=== PATIENT | female | born 1930 | race Caucasian/White ===

== ENCOUNTER 2018-04-18 23:15 | Observation (INO) ==
[2018-04-18] MEDS ORDERED: Ondansetron 4 MG/2 ML VIAL IVP ONE (23:23)
[2018-04-18] MEDS ORDERED: Nitroglycerin 1 INCH/GM PACKET TP ONE (23:23)
[2018-04-18] MEDS ORDERED: *HR* Labetalol 100 MG/20 ML MDV IVP ONE (23:24)
--- NOTE | 2018-04-18 23:25 | Emergency Department Note ---
Disposition Clinical Impression: Chest pain Qualifiers: Chest pain type: precordial pain Qualified Code(s): R07.2 - Precordial pain HTN (hypertension) Qualifiers: Hypertension type: essential hypertension Qualified Code(s): I10 - Essential ( primary) hypertension Disposition: Admitted As Inpatient Condition: Fair Referrals: Cuba Bojorquez DO [Primary Care Provider] - Forms: ED Satisfaction Letter Chest Pain HPI - General Chief Complaint: ED Chest Pain Stated Complaint: Chest pressure, dyspnea onset 20:00 Time Seen by Provider: 04/18/18 23:16 Source: patient, EMS Mode of arrival: EMS Limitations: no limitations Vital Signs Reviewed: Yes Nursing Notes Reviewed: Yes - History of Present Illness HPI Narrative: The patient had the onset of some anterior chest pain about 8 PM. She indicates this was a heaviness as if something was laying on her chest. She has had similar before and states it was related to some heart problems such that she has had cardiac stents and bypass in the past. She states she had shortness of breath with this and nausea but no diaphoresis. The pain did not radiate to her jaw, back or arms. She became more concerned and checked her blood pressure and finding it to be elevated. EMS were subsequently called and they transported her for evaluation. They noted a blood pressure 220/88, establish an IV in the left arm and transported her without event. The patient has had 2 nitroglycerin at about 9:30 PM which she states helped quite a bit. She has taken a full strength aspirin. She denies any change in recent medications, activity or stress. She denies fevers or chills or cough. She denies any lower extremity swelling, immobilization or injury. Currently she denies shortness of breath but states her chest feels still "just a little heavy " but that it is "not bad". Patient does have history of atrial fibrillation, hypertension, elevated cholesterol and known heart disease area and she does have a family history of heart disease. She states she has never been a smoker , has no history of diabetes, DVT, PE or obesity. Pt complaint: chest pain Onset (ago): hour(s) (3) Duration: intermittent Onset: during rest Pain Location: substernal Severity: moderate Quality: tightness, heaviness Pain Radiation: none Improves with: nitroglycerin Worsens with: nothing Associated symptoms: Reports: nausea, dyspnea. Denies: vomiting, diaphoresis, syncope, palpitations, fever, cough, leg swelling Treatments prior to arrival chest pain: aspirin, nitroglycerin - Related Data Home Medications Medication Instructions Recorded Confirmed Acetaminophen/Diphenhydramine 0.5 each PO HS PRN 07/11/17 07/11/17 [Acetaminophen Pm Caplet] Aspirin 325 mg PO DAILY 07/11/17 07/11/17 Cholecalciferol (Vitamin D3) 2,000 unit PO DAILY 07/11/17 07/11/17 [Vitamin D3] Clopidogrel [Plavix] 75 mg PO DAILY 07/11/17 07/11/17 Melatonin 5 mg PO HS PRN 07/11/17 07/11/17 Metoprolol [Lopressor] 12.5 mg PO BID 07/11/17 07/11/17 Nitroglycerin 0.4 mg PO Q5M PRN 07/11/17 07/11/17 Pravastatin Sodium [Pravachol] 40 mg PO HS 07/11/17 07/11/17 Travoprost [Travatan Z] 1 drop OP HS 07/11/17 07/11/17 amLODIPine [Norvasc] 5 mg PO DAILY 07/11/17 07/11/17 hydroCHLOROthiazide 12.5 mg PO Q48H 07/11/17 07/11/17 [Hydrochlorothiazide] Previous Rx's Medication Instructions Recorded Isosorbide MONOnitrate (24 HR) 90 mg PO DAILY #30 tab.er.24h 07/12/17 [Imdur] Ranolazine [Ranexa] 500 mg PO BID #60 tab.er.12h 07/12/17 Potassium Chloride [K-Tab ER] 20 meq PO DAILY #30 tablet.er 07/13/17 Allergies Allergy/AdvReac Type Severity Reaction Status Date / Time No Known Allergies Allergy Verified 07/11/17 14:49 All systems ED: reviewed and negative except as stated. Chest Pain PMH - Past Medical History Medical history: Reports: coronary artery disease, diabetes, hyperlipidemia, hypertension, myocardial infarction. Denies: DVT, pulmonary embolus Surgical history: Reports: angioplasty/stent, coronary bypass (CABG) Psychiatric history: Reports: no psych history Prior Cardiac Testing/Procedures: Stenting, CABG - Social History Smoking Status: Never smoker Alcohol use: Reports: none Drug use: Reports: none Physical Exam - General Limitations: no limitations General appearance: alert, in no apparent distress - Head Head exam: atraumatic, normocephalic, normal inspection - Eye Eye exam: Present: normal appearance, PERRL, EOMI - ENT ENT exam: normal exam, normal oropharynx, mucous membranes moist - Neck Neck exam: Present: normal inspection, full ROM, trachea midline - Chest Chest inspection: Present: normal inspection, symmetric chest wall rise. Absent : tenderness - Respiratory Respiratory exam: Present: normal lung sounds bilaterally. Absent: respiratory distress, wheezes, prolonged expiratory phase - Cardiovascular Cardiovascular exam: Present: regular rate, normal rhythm, normal heart sounds. Absent: tachycardia, JVD - Abdominal Exam Abdominal exam: Present: soft, Non-Tender, normal bowel sounds. Absent: tenderness, distention, guarding, rebound, rigidity - Extremities Exam Extremities exam: Present: normal inspection, full ROM, normal capillary refill. Absent: tenderness, pedal edema, calf tenderness - Expanded Lower Extremity Exam Neurovascular/Tendon exam: Present: normal capillary refill. Absent: motor deficit, sensory deficit, tendon deficit Gait: not tested/not observed - Neurological Exam Neurological exam: Present: alert, oriented X3 - Psychiatric Psychiatric exam: Present: normal affect, normal mood. Absent: agitated, anxious - Skin Skin exam: Present: warm, dry, intact, normal color. Absent: cyanosis, diaphoresis, pallor Course Vital Signs Temperature 97.9 F 04/18/18 23:24 Pulse Rate 67 04/18/18 23:24 Respiratory Rate 16 04/18/18 23:24 Blood Pressure 194/89 04/18/18 23:24 O2 Sat by Pulse Oximetry 97 04/18/18 23:24 Temperature 97.9 F 04/18/18 23:24 Pulse Rate 67 04/18/18 23:24 Respiratory Rate 16 04/18/18 23:24 Blood Pressure 194/89 04/18/18 23:24 O2 Sat by Pulse Oximetry 97 04/18/18 23:24 Oxygen Delivery Oxygen Delivery Room Air Chest Pain - Differential Diagnosis Likely: unstable angina pectoris, atypical chest pain, costalchondritis, chest pain - Medical Records Medical records reviewed: Yes I reviewed the patient's medical records. - Lab Data Lab results reviewed: Yes I reviewed the patient's lab results. Result diagrams: 04/18/18 23:22 04/18/18 23:22 Lab Results 04/18/18 04/18/18 04/18/18 Range/Units 23:22 23:22 23:22 WBC 9.5 (4.3-11.1) K/mcL RBC 4.37 (3.82-4.97) M/mcL Hgb 14.6 (11.5-15.4) g/dL Hct 43.4 (35.3-44.9) % MCV 99.3 (83.0-100.0) fL MCH 33.4 H (28.0-33.3) pg MCHC 33.6 (31.6-35.5) g/dL RDW 12.4 (11.5-14.5) % Plt Count 256 (140-400) K/mcL MPV 11.4 (9.4-12.4) fL Immature Gran % 0.3 (0-4) % Seg Neutrophils % 54.6 % Lymphocytes % 35.2 % Monocytes % 7.4 % Eosinophils % 2.1 % Basophils % 0.4 % Neutrophils # 5.2 (1.6-8.9) K/mcL Lymphocytes # 3.4 (0.6-4.6) K/mcL Monocytes # 0.7 (0.0-1.3) K/mcL Eosinophils # 0.2 (0.0-0.6) K/mcL Basophils # 0.0 (0.0-0.2) K/mcL PT 11.1 (9.4-12.1) Seconds INR 1.0 APTT 30.7 (26.0-36.0) Seconds Sodium (136-145) mEq/L Potassium (3.5-5.1) mEq/L Chloride (98-107) mEq/L Carbon Dioxide (23-29) mEq/L BUN (8-23) mg/dL Creatinine (0.60-1.20) mg/dL Est GFR ( Amer) (> 60) Est GFR (Non-Af Amer) (> 60) BUN/Creatinine Ratio (6-26) Glucose (70-105) mg/dL Calculated Osmolality (280-300) Calcium (8.6-10.3) mg/dL Troponin I (< 0.04) ng/mL B-Natriuretic Peptide 66 (Less than 100) pg/mL 04/18/18 Range/Units 23:22 WBC (4.3-11.1) K/mcL RBC (3.82-4.97) M/mcL Hgb (11.5-15.4) g/dL Hct (35.3-44.9) % MCV (83.0-100.0) fL MCH (28.0-33.3) pg MCHC (31.6-35.5) g/dL RDW (11.5-14.5) % Plt Count (140-400) K/mcL MPV (9.4-12.4) fL Immature Gran % (0-4) % Seg Neutrophils % % Lymphocytes % % Monocytes % % Eosinophils % % Basophils % % Neutrophils # (1.6-8.9) K/mcL Lymphocytes # (0.6-4.6) K/mcL Monocytes # (0.0-1.3) K/mcL Eosinophils # (0.0-0.6) K/mcL Basophils # (0.0-0.2) K/mcL PT (9.4-12.1) Seconds INR APTT (26.0-36.0) Seconds Sodium 139 (136-145) mEq/L Potassium 3.5 (3.5-5.1) mEq/L Chloride 101 (98-107) mEq/L Carbon Dioxide 26 (23-29) mEq/L BUN 20 (8-23) mg/dL Creatinine 1.08 (0.60-1.20) mg/dL Est GFR ( Amer) 58 L (> 60) Est GFR (Non-Af Amer) 48 L (> 60) BUN/Creatinine Ratio 19 (6-26) Glucose 103 (70-105) mg/dL Calculated Osmolality 291 (280-300) Calcium 9.6 (8.6-10.3) mg/dL Troponin I < 0.03 (< 0.04) ng/mL B-Natriuretic Peptide (Less than 100) pg/mL - Radiology Data Radiology results reviewed: Yes I reviewed the patient's radiology results. Single view chest x-ray is performed. This does not demonstrate evidence for infiltrate, effusion, pneumothorax, foreign body or heart failure. The cardiac silhouette is normal. I do not see abnormality to the osseous structures of the chest. This is on my interpretation. Impressions Chest X-Ray 04/18/18 23:23 IMPRESSION: Stable portable study. D/ / Katie Donahue Cha, MD / Katie Donahue Cha, MD Interpreting Provider: Katie Donahue Cha, MD - EKG Data EKG attestation: Yes I reviewed and interpreted this EKG. EKG shows normal: sinus rhythm, axis, intervals, QRS complexes, ST-T waves Rate: bradycardia (59) Voltage: c/w LVH Interpretation: no acute changes, LVH Heart Score - Score History: Moderately Suspicious EKG: Non Specific repolarisation Disturbance Age: Greater than 65 Risk Factors: Equal/Greater than 3 risk factor or history of atherosclerotic disease Troponin: Less than normal limit HEART Score Total: 6
[2018-04-18 23:32] LABS: Basophils % 0.4 %; Eosinophils # 0.2 K/mcL (0.0-0.6); Eosinophils % 2.1 %; Hematocrit 43.4 % (35.3-44.9); Hemoglobin 14.6 g/dL (11.5-15.4); Immature Granulocytes % 0.3 % (0-4); Lymphocytes # 3.4 K/mcL (0.6-4.6); Lymphocytes % 35.2 %; Mean Corpuscular HGB Conc 33.6 g/dL (31.6-35.5); Mean Corpuscular Hemoglobin 33.4 pg (28.0-33.3); Mean Corpuscular Volume 99.3 fL (83.0-100.0); Mean Platelet Volume 11.4 fL (9.4-12.4); Monocytes # 0.7 K/mcL (0.0-1.3); Monocytes % 7.4 %; Neutrophils # 5.2 K/mcL (1.6-8.9); Platelet Count 256 K/mcL (140-400); Red Blood Count 4.37 M/mcL (3.82-4.97); Red Cell Distribution Width 12.4 % (11.5-14.5); Segmented Neutrophils % 54.6 %
[2018-04-18 23:40] LABS: Prothrombin Time 11.1 Seconds (9.4-12.1)
[2018-04-18 23:43] LABS: Activated Partial Thrombo Time 30.7 Seconds (26.0-36.0)
[2018-04-18 23:51] LABS: BUN/Creatinine Ratio 19 (6-26); Blood Urea Nitrogen 20 mg/dL (8-23); Calcium 9.6 mg/dL (8.6-10.3); Carbon Dioxide 26 mEq/L (23-29); Chloride 101 mEq/L (98-107); Glucose 103 mg/dL (70-105); Osmolality,Calculated 291 (280-300); Potassium 3.5 mEq/L (3.5-5.1); Sodium 139 mEq/L (136-145); eGFR For Non-African Americans 48 (> 60)
[2018-04-18 23:58] LABS: Troponin I < 0.03 ng/mL (< 0.04)
[2018-04-19] MEDS ORDERED: Naloxone 0.4 MG/ML INJ IVP PRN (01:28)
[2018-04-19] MEDS: Nitroglycerin 1 INCH/GM PACKET TP SCH ×2 (06:42→14:28)
--- NOTE | 2018-04-19 15:33 | Internal Med History&Physical ---
Date of Encounter: 04/19/18 Time of Encounter: 14:40 Assessment and Plan (1) Chest pain Current visit: Yes Status: Acute History is consistent with myocardial ischemia. Repeat cardiac enzymes were ordered through emergency room. Isosorbide dose will be increased with consideration for increasing amlodipine. If symptoms persist referral to cardiology for further evaluation may be needed. Qualifiers: Chest pain type: precordial pain Qualified Code(s): R07.2 - Precordial pain (2) Prediabetes Current visit: Yes Status: Acute Hemoglobin A1c was 5.9% 11/01/2017. Recheck in a.m. (3) CKD (chronic kidney disease) stage 3, GFR 30-59 ml/min Current visit: Yes Status: Chronic Estimated GFR was 48 on admission. Patient was unaware she had chronic kidney disease stage III. (4) HTN (hypertension) Current visit: Yes Status: Acute Continue Lopressor and Norvasc. Qualifiers: Hypertension type: essential hypertension Qualified Code(s): I10 - Essential (primary) hypertension Internal Medicine - H&P: HPI Chief complaint: Chest discomfort Admitted From: Emergency Dept Plans for Post Hospital Care: Home History of present illness: Ms. Villa is a 88 year old female who came to emergency room stating she had chest discomfort onset approximately 8 PM while at rest. She describes it as a "heavy" sensation that came on slowly. She took 2 nitroglycerin pills with relief but states the pain recurred several minutes later. She became concerned and came to emergency room. She was evaluated and admitted to [facility] floor for ongoing care needs. She has had similar previous discomforts over the past week that were less severe. She states those episodes lasted several hours and were often relieved with a single nitroglycerin pill. Her cardiovascular history is significant for known ASHD status post [place] with 2 vessel CABG surgery over 10 years ago. She thinks she had stents placed prior to surgery. Her last heart cath 2013 showed 40% stenosis in the distal MILLER graft and patent SVG to RPDA. There was 60% midcircumflex stenosis. Medical management was recommended. Echocardiogram 07/12/2017 showed LVEF of 60-65% with mild LV diastolic dysfunction. There was asymmetric hypertrophy of the basal septal area. No significant valvular abnormalities were seen. The interventricular septum and posterior wall thickness measurements were 1.50 and 1.10 cm respectively. She denies DVT or pulmonary embolus. She states the discomfort in her chest has almost resolved. Past Med Surg Social Fam HX - Past Medical History Medical history: coronary artery disease, diabetes, hyperlipidemia, hypertension , myocardial infarction Psychiatric history: no psych history - Past Surgical History Surgical History: angioplasty/stent, coronary bypass (CABG) - Social History Smoking Status: Never smoker Smokeless Tobacco Status: No Alcohol use: none Drug use: none - Family History Father Living Status: Hx Family Cardiac Disorders: Yes Internal Medicine - H&P: Meds Acetaminophen/Diphenhydramine [Acetaminophen Pm Caplet] 0.5 each PO HS PRN 07/11 [History] Aspirin 325 mg PO DAILY 07/11/17 [History] Cholecalciferol (Vitamin D3) [Vitamin D3] 2,000 unit PO DAILY 07/11/17 [History] Clopidogrel [Plavix] 75 mg PO DAILY 07/11/17 [History] Melatonin 5 mg PO HS PRN 07/11/17 [History] Metoprolol [Lopressor] 12.5 mg PO BID 07/11/17 [History] Nitroglycerin 0.4 mg PO Q5M PRN 07/11/17 [History] Pravastatin Sodium [Pravachol] 40 mg PO HS 07/11/17 [History] Travoprost [Travatan Z] 1 drop OP HS 07/11/17 [History] amLODIPine [Norvasc] 5 mg PO DAILY 07/11/17 [History] hydroCHLOROthiazide [Hydrochlorothiazide] 12.5 mg PO Q48H 07/11/17 [History] Isosorbide MONOnitrate (24 HR) [Imdur] 90 mg PO DAILY #30 tab.er.24h 07/12/17 [ Rx] Ranolazine [Ranexa] 500 mg PO BID #60 tab.er.12h 07/12/17 [Rx] Potassium Chloride [K-Tab ER] 40 meq PO DAILY 04/19/18 [History] 3 Allergy/AdvReac Type Severity Reaction Status Date / Time No Known Allergies Allergy Verified 04/19/18 02:23 All Systems PM: A 10-system review of systems was performed and is negative for pertinent findings except as documented above in the HPI. Review of systems: Gen.: She states her weight has decreased approximately 5 pounds in the past year Cardiovascular: As per history of present illness Respiratory: She is a lifelong nonsmoker. She thinks she was told she had "slight emphysema" in the past. She does not wear home oxygen. GI: She has had cholecystectomy. She denies disorders of her liver or exocrine pancreas. : She denies hematuria dysuria or kidney stones Neurologic: She denies large distribution strokes or seizures. Endocrine: She has hyperlipidemia but denies diabetes or thyroid disease. 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 - Constitutional Vitals: Temp Pulse Resp BP Pulse Ox 98.4 F 60 16 155/66 98 04/19/18 08:01 04/19/18 08:01 04/19/18 08:01 04/19/18 08:01 04/19/18 14:30 Exam: Gen.: She is a well-developed well-nourished female sitting on the side of bed who appears in no acute distress. HEENT: Head is atraumatic and normocephalic. Eyes: EOMI. There is no scleral icterus. Mouth: Mucosa is moist. Neck: Supple and nontender. There is no thyromegaly or adenopathy noted. Heart: Regular with bigeminal rhythm. No murmurs or gallops are heard. Lungs: No wheezes or crackles are heard. Back: She has dorsal kyphosis. There is no flank tenderness. Chest: She has mild tenderness in her left chest wall but states "that is not the pain" on compression. Extremities: She has severe DJD changes of her hands and feet. There is no cyanosis edema or clubbing noted. Dorsalis pedis and posterior tibial pulses are 1-2 over 2 bilaterally. Neurologic: Mental status: She is talkative and a good historian. Cranial nerves: Smile is symmetric. Forehead wrinkles bilaterally. Tongue protrudes midline. EOMI. Motor: There is no pronator drift. Cerebellar: Finger to nose is intact bilaterally. Skin: Warm and dry Internal Med - H&P Results - Labs CBC & Chem 7: 04/18/18 23:22 04/18/18 23:22 Labs: Cardiac Enzymes 09/12/18 09/12/18 09/12/18 Range/Units 04:30 07:29 13:19 Troponin I < 0.03 < 0.03 < 0.03 (< 0.04) ng/mL
[2018-04-19] MEDS: amLODIPine 5 MG TABLET PO SCH (15:45)
[2018-04-19] MEDS: Isosorbide MONOnitrate (24 HR) 60 MG TAB.ER.24H PO SCH (15:45)
[2018-04-19] MEDS: Aspirin 325 MG TABLET PO SCH (15:45)
--- NOTE | 2018-04-19 17:33 | Electrocardiograph Report ---
[address] [address] Test Date: 2018-04-18 Pat Name: Lucy Villa Department: [id number] Room: [facility] Gender: F Consulting Solution Manager: Cecy : 1930 Requested By: Yobani Stovall Order Number: [id number] Reading MD: Enoc Lucia Measurements Intervals [place] Rate: 59 P: -35 AL: 121 QRS: -7 QRSD: 90 T: -3 QT: 432 QTc: 432 Interpretive Statements SINUS BRADYCARDIA WITH SINUS ARRHYTHMIA LEFT VENTRICULAR HYPERTROPHY AND ST-T CHANGE Electronically Signed On 04-19-2018 17:32:34 EDT by Enoc Lucia
[2018-04-19] MEDS ORDERED: Melatonin 3 MG TABLET PO SCH (21:00)
[2018-04-20 06:41] VITALS: BP 138/58
[2018-04-20] MEDS: Aspirin 325 MG TABLET PO SCH (08:07)
[2018-04-20] MEDS: Isosorbide MONOnitrate (24 HR) 60 MG TAB.ER.24H PO SCH (08:07)
[2018-04-20] MEDS: amLODIPine 5 MG TABLET PO SCH (08:07)
[2018-04-20] MEDS ORDERED: hydroCHLOROthiazide 25 MG TABLET PO SCH (09:00)
--- NOTE | 2018-04-20 11:04 | Discharge Summary ---
Orders not resulted at time of discharge: Pending orders 04/19/18 15:14 ECG 12 lead ECG [ECG] Routine 04/20/18 10:46 Hgb A1C Routine Date of Encounter: 04/20/18 Time of Encounter: 10:55 - Discharge Diagnosis (1) Chest pain Priority: Primary Status: Acute Qualifiers: Chest pain type: precordial pain Qualified Code(s): R07.2 - Precordial pain (2) Prediabetes Priority: Secondary Status: Acute (3) CKD (chronic kidney disease) stage 3, GFR 30-59 ml/min Priority: Secondary Status: Chronic (4) HTN (hypertension) Priority: Secondary Status: Acute Qualifiers: Hypertension type: essential hypertension Qualified Code(s): I10 - Essential (primary) hypertension Hospital course: Ms. Villa is a 88 year old female who came to emergency room stating she had chest discomfort onset approximately 8 PM while at rest. She describes it as a "heavy" sensation that came on slowly. She took 2 nitroglycerin pills with relief but states the pain recurred several minutes later. She became concerned and came to emergency room. She was evaluated and admitted to [facility] for ongoing care needs. Initial orders were written by the emergency room physician. I saw her on April 19 and performed the history and physical. Repeat cardiac enzymes showed no evidence of myocardial damage. I felt she possibly had myocardial ischemia as the source of her pain. She wished to try medication adjustment before immediate referral to cardiology. Isosorbide was increased to 120 mg daily. She reported no further angina pains when I saw her on April 20. She will discuss with her PCP referral to cardiology for further evaluation. Her blood pressure occasionally went as high as 180 systolic. Norvasc will be increased to 5 mg twice a day to improve blood pressure and lessen angina. Hemo-and A1c was ordered to follow-up on prediabetes found on 11/01/2017 labs. Patient was unaware she had chronic kidney disease stage III. Her PCP can monitor this. She was discharged home and follow with Dr. Bojorquez within 1 week. - Time Spent with Patient Total time spent providing and/or coordinating discharge services: - Discharge Medications Prescriptions: amLODIPine [Norvasc] 5 mg PO BID #60 tablet Isosorbide MONOnitrate (24 HR) [Imdur] 120 mg PO DAILY #60 tab.er.24h Nitroglycerin 0.4 mg PO Q5M PRN #1 vial PRN Reason: Chest Pain Home Medications: Acetaminophen/Diphenhydramine [Acetaminophen Pm Caplet] 0.5 each PO HS PRN 07/11 [History] Aspirin 325 mg PO DAILY 07/11/17 [History] Cholecalciferol (Vitamin D3) [Vitamin D3] 2,000 unit PO DAILY 07/11/17 [History] Clopidogrel [Plavix] 75 mg PO DAILY 07/11/17 [History] Melatonin 5 mg PO HS PRN 07/11/17 [History] Metoprolol [Lopressor] 12.5 mg PO BID 07/11/17 [History] Pravastatin Sodium [Pravachol] 40 mg PO HS 07/11/17 [History] Travoprost [Travatan Z] 1 drop OP HS 07/11/17 [History] hydroCHLOROthiazide [Hydrochlorothiazide] 12.5 mg PO Q48H 07/11/17 [History] Potassium Chloride [K-Tab ER] 40 meq PO DAILY 04/19/18 [History] Isosorbide MONOnitrate (24 HR) [Imdur] 120 mg PO DAILY #60 tab.er.24h 04/20/18 [ Rx] Nitroglycerin 0.4 mg PO Q5M PRN #1 vial 04/20/18 [Rx] amLODIPine [Norvasc] 5 mg PO BID #60 tablet 04/20/18 [Rx] Allergies/Adverse Reactions: 3 Allergy/AdvReac Type Severity Reaction Status Date / Time No Known Allergies Allergy Verified 04/19/18 02:23 Date of admission: 04/19/18 00:28 Primary care physician: Cuba Bojorquez DO - Constitutional Vitals: Temp Pulse Resp BP Pulse Ox 98.3 F 53 14 138/58 93 04/20/18 06:36 04/20/18 06:36 04/20/18 06:36 04/20/18 06:36 04/20/18 06:36 - Patient Status Disposition: Home, Self-Care Condition: Fair - Discharge Instructions Follow Up With: Cuba Bojorquez DO [Primary Care Provider] - 1 week - Diet and Activity Activity: resume usual activities as tolerated Diet: advance to your usual diet
--- NOTE | 2018-04-20 15:44 | Electrocardiograph Report ---
[place] [id number] Test Date: 2018-04-19 Pat Name: Lucy Villa Department: [id number] Room: [facility] Gender: F Document Review Attorney: [id number] : 1930 Requested By: Dave Castillo Order Number: [id number] Reading MD: Albina Berman Measurements Intervals [place] Rate: 67 P: 17 PA: 151 QRS: 32 QRSD: 89 T: -11 QT: 409 QTc: 424 Interpretive Statements SINUS OR ECTOPIC ATRIAL RHYTHM NONSPECIFIC ST & T-WAVE ABNORMALITY Electronically Signed On 04-20-2018 15:43:02 EDT by Albina Berman
[2018-04-20 17:30] LABS: Estimated Average Glucose 120 mg/dl; Hemoglobin A1C 5.8 %
== END 2018-04-20 13:00 | disposition home or self-care (01) ==
LOC: INPPIK 23:15 → EMEROOPIK 23:15 → INPPIK 04-19 01:00
PROVIDERS: ADMIT Internal Medicine; ATTEND Internal Medicine